=== PATIENT | male | born 1990 | race American Indian/Alaskan Native ===

== ENCOUNTER 2019-03-02 09:49 | Emergency (ER) | payer OTHER, BC ==
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
[2019-03-02 15:04] VITALS: BP 145/96
== END 2019-03-02 14:48 | disposition home or self-care (01) ==
LOC: ED 09:49
DX: S39.012A Strain of muscle, fascia and tendon of lower back, initial encounter (principal); F17.200 Nicotine dependence, unspecified, uncomplicated; Z79.899 Other long term (current) drug therapy; V49.49XA Driver injured in collision with other motor vehicles in traffic accident, initial encounter; Y93.89 Activity, other specified; Y92.410 Unspecified street and highway as the place of occurrence of the external cause; Y99.8 Other external cause status

== ENCOUNTER 2019-10-17 13:07 | Emergency (ER) | payer BC ==
[2019-10-17] MEDS ORDERED: DIPHtheria,PERTUSSIS(ACELL),TETANUS VACCINE/PF 0.5 ML VIAL IM ONE (14:02)
[2019-10-17] MEDS ORDERED: LIDOCAINE (1%) 10 MG/1 ML VIAL 20 ML MDV INFILTRATI ONE (14:02)
[2019-10-17] MEDS ORDERED: traMADol 50 MG TAB PO ONE (14:02)
[2019-10-17 14:22] VITALS: BP 151/90
--- NOTE | 2019-10-17 14:24 | Emergency Department Report ---
- General Chief Complaint: Wound/Laceration Stated Complaint: HEAD INJURY Time Seen by Provider: 10/17/19 13:48 Source: patient Mode of arrival: Ambulatory Limitations: No Limitations - History of Present Illness Initial Comments: Patient is a 29-year-old male who presents emergency room complaints of a laceration to the forehead that occurred around 11 AM today. Patient states that he was mopping the floor and was walking backwards and accidentally slipped and hit his head on the counter. He states initially there was some bleeding but it has improved. He states that he just has pain when he moves his forehead. He denies any loss of consciousness, headache, vision changes, numbness, weakness, bowel or bladder incontinence, vomiting, any other symptoms or injuries. He denies any neck pain. He is unsure of his last tetanus immunization. No past medical history. No allergies to medications. - Related Data Previous Rx's Medication Instructions Recorded Last Taken Type Naproxen [Naprosyn] 500 mg PO BID PRN #20 tablet 03/02/19 Unknown Rx methOCARBAMOL [Robaxin TAB] 500 mg PO BID PRN #15 tab 03/02/19 Unknown Rx Acetaminophen/Codeine [Tylenol 1 tab PO Q6H PRN #10 tab 10/17/19 Unknown Rx /Codeine # 3 tab] cephALEXin [Keflex] 500 mg PO QID 7 Days #28 cap 10/17/19 Unknown Rx Allergies Allergy/AdvReac Type Severity Reaction Status Date / Time No Known Allergies Allergy Unverified 03/02/19 10:15 ED Review of Systems ROS: Stated complaint: HEAD INJURY Other details as noted in HPI Comment: All other systems reviewed and negative ED Past Medical Hx - Past Medical History Previous Medical History?: No - Surgical History Past Surgical History?: No - Social History Smoking Status: Never Smoker Substance Use Type: Alcohol, Marijuana - Medications Home Medications: Home Medications Medication Instructions Recorded Confirmed Last Taken Type Naproxen [Naprosyn] 500 mg PO BID PRN #20 tablet 03/02/19 Unknown Rx methOCARBAMOL [Robaxin TAB] 500 mg PO BID PRN #15 tab 03/02/19 Unknown Rx Acetaminophen/Codeine [Tylenol 1 tab PO Q6H PRN #10 tab 10/17/19 Unknown Rx /Codeine # 3 tab] cephALEXin [Keflex] 500 mg PO QID 7 Days #28 cap 10/17/19 Unknown Rx ED Physical Exam - General Limitations: No Limitations General appearance: alert, in no apparent distress - Head Head exam: Present: other (4 cm L-shape laceration present to the forehead, no foreign body, no muscle involvement, no bony skull ttp) - Eye Eye exam: Present: normal appearance, PERRL, EOMI. Absent: periorbital swelling, periorbital tenderness Pupils: Present: normal accommodation, other (no racoon eyes) - ENT ENT exam: Present: mucous membranes moist, other (no rosario signs ) - Neck Neck exam: Present: normal inspection, full ROM. Absent: tenderness - Respiratory Respiratory exam: Present: normal lung sounds bilaterally. Absent: respiratory distress, wheezes, rales, rhonchi, stridor, chest wall tenderness, accessory muscle use, decreased breath sounds, prolonged expiratory - Cardiovascular Cardiovascular Exam: Present: regular rate, normal rhythm, normal heart sounds. Absent: systolic murmur, diastolic murmur, rubs, gallop - Neurological Exam Neurological exam: Present: alert, oriented X3, CN II-XII intact, normal gait. Absent: motor sensory deficit - Psychiatric Psychiatric exam: Present: normal affect, normal mood - Skin Skin exam: Present: warm, dry ED Course Vital Signs 10/17/19 10/17/19 13:11 14:44 Temperature 98.3 F Pulse Rate 70 Respiratory 18 18 Rate Blood Pressure 151/90 O2 Sat by Pulse 100 Oximetry - Laceration /Wound Repair Face Wound Location: face (forehead) Wound Length (cm): 4 Wound's Depth, Shape: superficial Wound Explored: clean Irrigated w/ Saline (ccs): 500 Betadine Prep?: Yes Volume Anesthetic (ccs): 7 (2% lidocaine without epi) Wound Debrided: extensive Wound Repaired With: sutures, Steri-strips, Dermabond Suture Size/Type: 4:0 Number of Sutures: 1 (1 running subcuticular vicryl stitch) Sterile Dressing Applied?: Yes Progress: Wound irrigated with saline and thoroughly scrubbed with Betadine, no foreign body, no muscle involvement, 7 cc of 2% lidocaine without epinephrine used as anesthetic, 4-0 Vicryl used for closure, one running subcuticular stitch placed, Dermabond and Steri-Strips applied, there is good skin approximation, patient t olerated well, no complications, bleeding controlled, sterile dressing applied ED Medical Decision Making - Medical Decision Making Patient is a 29-year-old male who presents emergency room complaints of a laceration to the forehead that occurred around 11 AM today. Patient states that he was mopping the floor and was walking backwards and accidentally slipped and hit his head on the counter. He states initially there was some bleeding but it has improved. He states that he just has pain when he moves his forehead. He denies any loss of consciousness, headache, vision changes, numbness, weakness, bowel or bladder incontinence, vomiting, any other symptoms or injuries. He denies any neck pain. He is unsure of his last tetanus immun ization. No past medical history. No allergies to medications. vss. on exam: 4 cm L-shape laceration present to the forehead, no foreign body, no muscle involvement, no bony skull ttp, no racoon eyes, no rosario signs, no neuro deficits. [facility] CT head score is 0, Ct head imaging is not required. discussed red flag warning signs of head injury with pt and discussed very strict return precautions, offered pt CT head and he declined states he will return immediately if he begins experiencing any of those symptoms. wound irrigated with saline and thoroughly scrubbed with Betadine and repaired per procedure note. Patient given tetanus immunization and tramadol in the emergency department as he did not drive. Patient given prescription for Keflex and Tylenol with codeine. Advised patient Please take medication as prescribed. Do not drive or operate machinery while taking pain medication. Please keep area clean, dry, covered. Current Steri-Strips need to stay in place for 3 days, do not get area wet for 3 days. After 3 days may wash area with soap and water and then pat dry. No hot tub, no pool, no soaking in water. Your sutures are absorbable and do not need to be removed. Follow-up with a primary care doctor for reexamination. Return to emergency room immediately for any new or worsening symptoms but not limited to loss of consciousness, lethargic, vomiting, vision changes, numbness, weakness, worsening headache, signs of infection, etc. Critical care attestation.: If time is entered above; I have spent that time in minutes in the direct care of this critically ill patient, excluding procedure time. ED Disposition Clinical Impression: Laceration of forehead Qualifiers: Encounter type: initial encounter Qualified Code(s): S01.81XA - Laceration without foreign body of other part of head, initial encounter Minor head injury without loss of consciousness Qualifiers: Encounter type: initial encounter Qualified Code(s): S09.90XA - Unspecified injury of head, initial encounter Disposition: DC-01 TO HOME OR SELFCARE Is pt being admited?: No Does the pt Need Aspirin: No Condition: Stable Instructions: Laceration (ED), Minor Head Injury (ED), Skin Adhesive Care (ED), Absorbable Suture Care (ED) Additional Instructions: Please take medication as prescribed. Do not drive or operate machinery while taking pain medication. Please keep area clean, dry, covered. Current Steri- Strips need to stay in place for 3 days, do not get area wet for 3 days. After 3 days may wash area with soap and water and then pat dry. No hot tub, no pool, no soaking in water. Your sutures are absorbable and do not need to be re moved. Follow-up with a primary care doctor for reexamination. Return to emergency room immediately for any new or worsening symptoms but not limited to loss of consciousness, lethargic, vomiting, vision changes, numbness, weakness, worsening headache, signs of infection, etc. Prescriptions: cephALEXin [Keflex] 500 mg PO QID 7 Days #28 cap Acetaminophen/Codeine [Tylenol /Codeine # 3 tab] 1 tab PO Q6H PRN #10 tab PRN Reason: Pain, Moderate (4-6) Referrals: CADEN VELASQUEZ MD [Staff Physician] - 2-3 Days [facility] [Provider Group] - 2-3 Days CINDY AZEVEDO MD [Staff Physician] - 2-3 Days Forms: Work/School Release Form(ED) Time of Disposition: 15:44 Print Language: DIVEHI
[2019-10-17] MEDS ORDERED: LIDOCAINE (2%) 20 MG/1 ML VIAL 20 ML MDV INFILTRATI ONE (14:37)
== END 2019-10-17 16:05 | disposition home or self-care (01) ==
LOC: ED 13:07
DX: S01.81XA Laceration without foreign body of other part of head, initial encounter (principal); S09.90XA Unspecified injury of head, initial encounter; F12.10 Cannabis abuse, uncomplicated; Z79.899 Other long term (current) drug therapy; W01.0XXA Fall on same level from slipping, tripping and stumbling without subsequent striking against object, initial encounter; Y93.89 Activity, other specified; Y92.89 Other specified places as the place of occurrence of the external cause; Y99.8 Other external cause status
CPT/HCPCS: 90471; 90715; 99282

== ENCOUNTER 2020-06-28 00:26 | Emergency (ER) | payer SELFPAY ==
[2020-06-28 01:30] VITALS: BP 123/79
== END 2020-06-28 04:00 | disposition home or self-care (01) ==
LOC: ED 00:26
DX: S61.412A Laceration without foreign body of left hand, initial encounter (principal); L08.9 Local infection of the skin and subcutaneous tissue, unspecified; F12.10 Cannabis abuse, uncomplicated; Z79.899 Other long term (current) drug therapy; W25.XXXA Contact with sharp glass, initial encounter; Y93.89 Activity, other specified; Y92.89 Other specified places as the place of occurrence of the external cause; Y99.8 Other external cause status
CPT/HCPCS: 99282

== ENCOUNTER 2020-10-05 12:08 | Emergency (ER) | payer OTHER ==
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
[2020-10-05 14:48] VITALS: BP 150/104
== END 2020-10-05 14:50 | disposition home or self-care (01) ==
LOC: ED 12:08
DX: S16.1XXA Strain of muscle, fascia and tendon at neck level, initial encounter (principal); S39.012A Strain of muscle, fascia and tendon of lower back, initial encounter; S63.502A Unspecified sprain of left wrist, initial encounter; F12.90 Cannabis use, unspecified, uncomplicated; Z79.899 Other long term (current) drug therapy; V49.49XA Driver injured in collision with other motor vehicles in traffic accident, initial encounter; Y92.410 Unspecified street and highway as the place of occurrence of the external cause; Y93.89 Activity, other specified; Y99.8 Other external cause status
CPT/HCPCS: 99282